=== PATIENT | male | born 1970 ===

== ENCOUNTER 2019-12-10 20:54 | Emergency (ER) | payer OTHER ==
[~2019-12-10] VITALS: Ht 177.8 cm; Wt 95.3 kg
== END 2019-12-10 21:28 | disposition home or self-care (01) ==
LOC: ER 20:54
DX: S91.331A Puncture wound without foreign body, right foot, initial encounter (principal); W45.0XXA Nail entering through skin, initial encounter; Y93.01 Activity, walking, marching and hiking; Y92.018 Other place in single-family (private) house as the place of occurrence of the external cause; Y99.8 Other external cause status